=== PATIENT | female | born 1985 | race Native Hawaiian/Other Pacific Islander ===

== ENCOUNTER 2016-06-30 13:52 | Emergency (ER) | payer OTHER ==
[~2016-06-30] VITALS: Ht 167.6 cm; Wt 72.6 kg
[~2016-06-30 13:52] MED LIST: CLON1TAB18 PO; MOBIC7.5 M1 PO; POLY3350 PO; SUBOXONE PO
[2016-06-30 14:15] VITALS: BP 1109/72; TEMP 99.3
[2016-06-30] MEDS ORDERED: OXYC5TAB53 PO (14:16)
[2016-06-30 14:49] LABS: PLATELET COUNT 129 K/uL (152-353)
[2016-06-30 14:50] LABS: POTASSIUM 3.6 mmol/L (3.6-5.2); SODIUM 137 mmol/L (136-145)
== END 2016-06-30 17:15 | disposition home or self-care (01) ==
LOC: ED 13:52
DX: R51 Headache (principal); M54.5 Low back pain; S39.012A Strain of muscle, fascia and tendon of lower back, initial encounter; R74.0 Nonspecific elevation of levels of transaminase and lactic acid dehydrogenase [LDH]
CPT/HCPCS: 36415; 80053; 81000; 85027; 87077; 87081; 87185; 87804; 87880; 96361; 96374; 96375; 96376; 99284; J1100; J1200; J1885; J2550

== ENCOUNTER 2017-01-06 17:09 | Emergency (ER) | payer OTHER ==
[~2017-01-06] VITALS: Ht 167.6 cm; Wt 58.5 kg
[~2017-01-06 17:09] MED LIST changes: +OXYC5TAB53 PO
[2017-01-06 17:25] VITALS: BP 114/83; TEMP 98.1
== END 2017-01-06 18:34 | disposition home or self-care (01) ==
LOC: ED 17:09
DX: R50.9 Fever, unspecified (principal)

== ENCOUNTER 2018-07-30 18:43 | Emergency (ER) | payer OTHER ==
[~2018-07-30] VITALS: Ht 167.6 cm; Wt 75.8 kg
[2018-07-30 19:42] VITALS: BP 138/78; TEMP 98.4
== END 2018-07-30 19:42 | disposition home or self-care (01) ==
LOC: ED 18:43
DX: S60.450A Superficial foreign body of right index finger, initial encounter (principal); W45.8XXA Other foreign body or object entering through skin, initial encounter
CPT/HCPCS: 90471; 90715; 96372; 99283; J1885

== ENCOUNTER 2018-08-19 11:47 | Emergency (ER) | payer OTHER ==
[~2018-08-19] VITALS: Ht 167.6 cm; Wt 74.8 kg
[2018-08-19 11:55] VITALS: TEMP 99.1
[2018-08-19] MEDS ORDERED: RANI150T78 PO (12:39)
[2018-08-19 12:45] LABS: PLATELET COUNT 202 K/uL (152-353)
[2018-08-19 12:55] LABS: POTASSIUM 3.8 mmol/L (3.6-5.2)
[2018-08-19 13:45] VITALS: BP 132/68
== END 2018-08-19 15:48 | disposition home or self-care (01) ==
LOC: ED 11:47
PROVIDERS: Emergency Medicine
DX: R10.31 Right lower quadrant pain (principal)
CPT/HCPCS: 36415; 80053; 81000; 82150; 83690; 85027; 96365; 96374; 96375; 99284; J1885; J2405; Q9963

== ENCOUNTER 2018-12-10 12:52 | Outpatient (CLI) | payer OTHER ==
[~2018-12-10 12:52] MED LIST changes: +RANI150T78 PO
== END 2018-12-10 20:19 | disposition home or self-care (01) ==
LOC: RAD 12:52
DX: Z01.818 Encounter for other preprocedural examination (principal)

== ENCOUNTER 2020-05-08 09:52 | Emergency (ER) | payer OTHER ==
[~2020-05-08] VITALS: Ht 167.6 cm; Wt 74.8 kg
[2020-05-08 10:05] VITALS: BP 128/89; TEMP 98.1
[2020-05-08 12:01] LABS: PLATELET COUNT 174 K/uL (152-353)
[2020-05-08 12:18] LABS: POTASSIUM 3.9 mmol/L (3.6-5.2)
== END 2020-05-08 12:30 | disposition short-term general hospital (02) ==
LOC: ED 09:52
PROVIDERS: Emergency Medicine Emergency Medical Services
DX: S06.339A Contusion and laceration of cerebrum, unspecified, with loss of consciousness of unspecified duration, initial encounter (principal); U07.1 COVID-19
CPT/HCPCS: 80048; 85027; 85610; 87635; 96360; 96361; 96375; 96376; 99284; J2270; J2405; U0003

== ENCOUNTER 2021-04-26 16:37 | Emergency (ER) | payer OTHER ==
[~2021-04-26] VITALS: Ht 167.6 cm; Wt 88.5 kg
[2021-04-26 16:42] VITALS: BP 131/87; TEMP 98.4
== END 2021-04-26 17:41 | disposition home or self-care (01) ==
LOC: ED 16:37
DX: L50.8 Other urticaria (principal)
CPT/HCPCS: 99281